=== PATIENT | female | born 1990 | race Caucasian/White ===

== ENCOUNTER 2020-06-24 19:49 | Emergency (ER) | payer SELFPAY ==
[~2020-06-24] VITALS: Ht 175.3 cm; Wt 68.0 kg
[2020-06-24 20:07] VITALS: Ht 175.3 cm; Wt 68.0 kg
[2020-06-24 20:52] VITALS: BP 123/90
== END 2020-06-24 20:52 | disposition home or self-care (01) ==
LOC: ED 19:49
DX: R40.4 Transient alteration of awareness (principal); T40.1X1A Poisoning by heroin, accidental (unintentional), initial encounter; Y92.89 Other specified places as the place of occurrence of the external cause